=== PATIENT | male | born 1995 | race Caucasian/White ===

== ENCOUNTER 2024-11-18 16:49 | Emergency (ER) | payer SELFPAY ==
--- NOTE | 2024-11-18 16:48 | ECG_ITS ---
APPROVED REPORT Exam: Resting ECG HR:75 bpm ECG Measurements Heart Rate 75 AXES OR 168 P 82 QRSd 92 QRS 85 QT 351 T 75 QTc 380 Conclusion SINUS RHYTHM MINIMAL VOLTAGE CRITERIA FOR LVH, CONSIDER NORMAL VARIANT [MEETS CRITERIA IN ONE OF: R(aVL), S(V1), R(V5), R(V5/V6)+S(V1)] EARLY REPOLARIZATION [ST ELEVATION WITH NORMALLY INFLECTED T-WAVE] BORDERLINE ECG UNCONFIRMED REPORT Electronically signed by : AUGUSTIN DIALLO, 11/20/2024 05:17:01
[2024-11-18 16:51] VITALS: BP 137/78; PULSE 79; RESP 18; TEMP 36.6; O2SAT 99; BMI 20.4
--- NOTE | 2024-11-18 16:57 | HMH.EDGENADL ---
Discharge Plan Disposition Patient Disposition: Home, Self-Care Condition: Good Referrals Follow up/Referrals: Provider,Referral, [Primary Care Provider] - See instructions Activity Restrictions/Add. Instructions Additional Instructions/Restrictions: As we discussed, your CT scan did not show inflammation of your pancreas, although your pancreas enzyme level was elevated. It did look like you had a enteritis or a stomach bug on your CT scan but the rest of your labs were reassuring. Please make sure you are staying hydrated and eat bland foods. Please follow-up with your primary care doctor to make sure you are pancreas enzyme level goes back down. Please return with any new or worsening symptoms. Clinical Impressions Clinical Impression: Elevated lipase Print Language Print Language: Martiniquais Discharge ED Provider: Vladimir Call Adult HPI General Chief complaint: Chest Pain Stated complaint: Chest Pain Time Seen by Provider: 11/18/24 16:57 Mode of Arrival: Ambulatory Source of Information: Patient Description of Symptoms (Recalled from ER Triage Doc. by RN): Patient reports chest pain that started Sunday. States that it comes and goes and that his left arm is tingly. States that it did get worse this morning so he took some tylenol and ibuprofen and that seemed to help. History of Present Illness HPI narrative: Patient presents for evaluation of gradual in onset, substernal, nonradiating, nonpleuritic, nonexertional chest pain described as sharp, intermittent, with no exacerbating or alleviating factors no associated hemoptysis no associated palpitations. No associated other symptoms outside of nausea. No sick contacts no recent travel. No recreational drug use, reports minimal alcohol use. Please note that above description of symptoms, in this electronic medical record under categorization of recalled from ER triage doctor by RN are reflective of an initial nursing assessment, however, is not reflective of my full history and physical exam that was personally taken and clarified. Consequentially, this preceding description of symptoms, which may include the patient's categorized chief complaint in the EMR, do not reflect my personal clinical impression, and the ultimate description of history of present illness and patient stated complaints should be deferred to this section of the note. Unless stated otherwise or congruent with this section of the note, additional signs, symptoms, or incongruence should be interpreted as inaccurate with my clinical impression. Related Data Allergies Allergy/AdvReac Type Severity Reaction Status Date / Time No Known Allergies Allergy Verified 11/18/24 16:54 PFSH PFSH Disclaimer: The information contained in this section may have been updated after the patient was seen, as this information can be updated by other users. Social History Smoking Status: Unknown if ever smoked alcohol intake: never current occupational status: other Travel in the last 8 weeks: None ROS Obtained: Yes other As per HPI Physical Exam General General appearance: alert and in no apparent distress Head Head exam: atraumatic and normocephalic Eye Eye exam: Present normal appearance Neck Neck exam: Present normal inspection Chest Chest inspection: Present normal inspection and symmetric chest wall rise Respiratory Respiratory exam: Present normal lung sounds bilaterally; Absent respiratory distress Cardiovascular Cardiovascular exam: Present regular rate and normal rhythm Abdominal Exam Abdominal exam: Present soft Neurological Exam Neurological exam: Present alert and oriented X3 Psychiatric Psychiatric exam: Present normal affect and normal mood Skin Skin exam: Present warm and dry Medical Decision Making Medical Records Medical records reviewed: Yes I reviewed the patient's medical records. Screening: Per USPSTF and CDC recommendations, given the prevalence of disease in our region, it is our hospital?s policy to screen for HIV and viral Hepatitis for all patients aged 18 and over and those with ongoing risk factors. John Inquiry Pt receiving controlled substance: No Vital Signs: 11/18/24 16:51 11/18/24 20:22 Temperature 97.9 F 98.1 F Temperature Source Oral Pulse Rate 54 L Pulse Rate [Radial] 79 Respiratory Rate 18 20 Blood Pressure 118/71 Blood Pressure [Right Arm] 137/78 Blood Pressure Mean [Right Arm] 97 Blood Pressure Source [Right Arm] Automatic Cuff Blood Pressure Position [Right Arm] Sitting 02 Sat by Pulse Oximetry 99 Oxygen Delivery Method Room Air Room Air Lab Data Lab Results 11/18/24 16:57: WBC 5.7, RBC 4.98, Hgb 14.4, Hct 42.3, MCV 84.9, MCH 28.9, MCHC 34.0, RDW 12.1, Plt Count 169, MPV 12.0 H, Neut % (Auto) 61.9, Lymph % (Auto) 26.5, [place] % (Auto) 9.4 H, Eos % (Auto) 1.7, Baso % (Auto) 0.3, Neut # (Auto) 3.6, Lymph # (Auto) 1.5, [place] # (Auto) 0.5, Eos # (Auto) 0.1, Baso # (Auto) 0.0, Sodium 139, Potassium 3.8, Chloride 102, Carbon Dioxide 27, Anion Gap 13.8, BUN 19, Creatinine 0.70, Estimated Creat Clear 158, Estimated GFR 135, Est GFR ( Amer) 164, Glucose 99, Calcium 9.3, Total Bilirubin 0.4, AST 25, ALT 21, Alkaline Phosphatase 46, Total Creatine Kinase 112, Troponin I < 0.01, Total Protein 7.4, Albumin 4.4, Globulin 3.0, Albumin/Globulin Ratio 1.5, Lipase 655 H 11/18/24 20:20: Troponin I < 0.01 11/18/24 16:57 11/18/24 16:57 Orders (Tests/Meds): ED MEDICATIONS Discontinued Medications Generic Name Dose Route Start Last Admin Trade Name Freq PRN Reason Stop Dose Admin Iopamidol 75 ml 11/18/24 19:35 11/18/24 19:37 Iopamidol-370 (76%);100ml Bottle IV 11/18/24 19:36 75 ml ONCE ONE Administration Ketorolac Tromethamine 15 mg 11/18/24 17:07 11/18/24 17:13 Ketorolac 30mg/Ml Vial IV 11/18/24 17:08 Not Given ONCE ONE Sodium Chloride 10 ml 11/18/24 19:35 11/18/24 19:37 Sodium Chloride 0.9% 10ml Syr (Rad Only) IV 12/18/24 19:34 10 ml NEEDED PRN Administration Maintain IV Site ORDERS Category Date Time Status CT abdomen pelvis w con Stat Cat Scan 11/18/24 18:39 Completed POCUS Point of Care (ER Only) Stat Exams 11/18/24 18:31 Completed XR chest 2V Stat Exams 11/18/24 17:07 Completed CBC w/Auto Diff [Complete Blood Count Auto Diff] Stat Lab 11/18/24 16:57 Completed CK [Creatine Kinase] Stat Lab 11/18/24 16:57 Completed CMP [Comprehensive Metabolic Panel] Stat Lab 11/18/24 16:57 Completed Lipase Stat Lab 11/18/24 16:57 Completed Troponin I Q3H Lab 11/18/24 16:57 Completed Troponin I Q3H Lab 11/18/24 20:20 Completed HEART Score History (anamnesis): Slightly suspicious ECG: Non-specific disturbance Age: <45 years Risk factors: No known risk factors Troponin: </= normal limit HEART Score: 1 Medical Decision Narrative: Patient with history and exam per above presenting for evaluation of chest pain Diagnoses considered include ACS, insufficient clinical evidence to warrant further investigation for etiologies such as PE, dissection, will also evaluate for referred pain causes, including pancreatitis, PUD, pneumonia ED workup and treatment included: ED MEDICATIONS Discontinued Medications Generic Name Dose Route Start Last Admin Trade Name Freq PRN Reason Stop Dose Admin Iopamidol 75 ml 11/18/24 19:35 11/18/24 19:37 Iopamidol-370 (76%);100ml Bottle IV 11/18/24 19:36 75 ml ONCE ONE Administration Ketorolac Tromethamine 15 mg 11/18/24 17:07 11/18/24 17:13 Ketorolac 30mg/Ml Vial IV 11/18/24 17:08 Not Given ONCE ONE Sodium Chloride 10 ml 11/18/24 19:35 11/18/24 19:37 Sodium Chloride 0.9% 10ml Syr (Rad Only) IV 12/18/24 19:34 10 ml NEEDED PRN Administration Maintain IV Site ORDERS Category Date Time Status CT abdomen pelvis w con Stat Cat Scan 11/18/24 18:39 Completed POCUS Point of Care (ER Only) Stat Exams 11/18/24 18:31 Completed XR chest 2V Stat Exams 11/18/24 17:07 Completed CBC w/Auto Diff [Complete Blood Count Auto Diff] Stat Lab 11/18/24 16:57 Completed CK [Creatine Kinase] Stat Lab 11/18/24 16:57 Completed CMP [Comprehensive Metabolic Panel] Stat Lab 11/18/24 16:57 Completed Lipase Stat Lab 11/18/24 16:57 Completed Troponin I Q3H Lab 11/18/24 16:57 Completed Troponin I Q3H Lab 11/18/24 20:20 Completed Labs were independently interpreted by me, significant for troponin within normal limits, however elevated lipase Imaging was independently visualized and interpreted by me, significant for no acute findings Please refer to radiology report for full details. My clinical impression at this time is most consistent with likely pancreatitis, patient is able to tolerate p.o. intake, is comfortable with discharge at this time with outpatient follow-up and strict return precautions. Low clinical likelihood at this time of cardiac pathology I discussed my clinical impression with patient and answered all questions. At this time, the evidence for any other entities in the differential is insufficient to warrant any further testing or ED observation. This was explained to the patient. The patient was advised that persistent or worsening symptoms require further evaluation. Critical Care Critical Care Time Critical Care Time: No
--- NOTE | 2024-11-18 17:07 | XR_ITS ---
PROCEDURE INFORMATION: Exam: XR Chest Exam date and time: 11/18/2024 5:31 PM Age: 28 years old Clinical indication: Sternal or substernal pain; Additional info: Substernal chest pain TECHNIQUE: Imaging protocol: Radiologic exam of the chest. Views: 2 views. COMPARISON: No relevant prior studies available. FINDINGS: Lungs: Unremarkable. No consolidation. Pleural spaces: Unremarkable. No pleural effusion. No pneumothorax. Heart/Mediastinum: Unremarkable. No cardiomegaly. Bones/joints: Postsurgical changes of the thoracolumbar spine. IMPRESSION: No acute findings.
[2024-11-18 17:27] LABS: Basophils % 0.3 % (0.1-2.0); Eosinophils # 0.1 K/mm3 (0.0-0.4); Eosinophils % 1.7 % (0.1-12.0); Hematocrit 42.3 % (42.0-52.0); Hemoglobin 14.4 g/dL (14.1-18.0); Lymphocytes # 1.5 K/mm3 (0.7-4.5); Lymphocytes % 26.5 % (10-50); Mean Corpuscular Hemoglobin 28.9 pg (27.0-31.2); Mean Corpuscular Volume 84.9 fl (80-94); Monocytes # 0.5 K/mm3 (0.1-1.0); Monocytes % 9.4 % (1.7-9.3); Neutrophils # 3.6 K/mm3 (1.8-7.8); Neutrophils % 61.9 % (37.0-80.0); Platelet Count 169 K/mm3 (142-424); Red Blood Count 4.98 M/mm3 (4.60-6.20); Red Cell Distribution Width 12.1 % (11.5-17.5); White Blood Count 5.7 K/mm3 (4.8-10.8)
[2024-11-18 17:44] LABS: Alanine Aminotransferase 21 U/L (12-78); Albumin Level 4.4 g/dl (3.5-5.0); Albumin/Globulin Ratio 1.5 (1.1-1.8); Alkaline Phosphatase 46 U/L (38-126); Anion Gap 13.8 mEq/L (5-15); Aspartate Amino Transferase 25 U/L (17-59); Bilirubin,Total 0.4 mg/dl (0.2-1.3); Blood Urea Nitrogen 19 mg/dl (9-20); Calcium 9.3 mg/dl (8.4-10.2); Carbon Dioxide 27 mmol/L (22.0-30.0); Chloride 102 mmol/L (98-107); Creatine Kinase 112 U/L (55-170); Creatinine Clearance Estimated 158 mL/min (50-200); Estimated Glomerular Filt Rate 135 ml/min (>60); GFR (African American) 164 ML/MIN (>60); Glucose 99 mg/dl (74-100); Potassium 3.8 mmoL/L (3.5-5.1); Sodium 139 mmol/L (136-145); Total Protein,Serum 7.4 g/dl (6.3-8.2)
--- NOTE | 2024-11-18 17:50 | PC.NURSE ---
PT REFUSED COVID AND FLU SWAB
[2024-11-18 18:27] LABS: Lipase 655 U/L (23-300)
--- NOTE | 2024-11-18 18:35 | PC.NURSE ---
Dr. Call notified of Lipase of 655.
--- NOTE | 2024-11-18 18:39 | CT_ITS ---
PROCEDURE INFORMATION: Exam: CT Abdomen And Pelvis With Contrast Exam date and time: 11/18/2024 7:34 PM Age: 28 years old Clinical indication: Abdominal pain; Additional info: Abd/chest pain, elevated lipase, gb wnl on pocus TECHNIQUE: Imaging protocol: Computed tomography of the abdomen and pelvis with contrast. Radiation optimization: All CT scans at this facility use at least one of these dose optimization techniques: automated exposure control; mA and/or kV adjustment per patient size (includes targeted exams where dose is matched to clinical indication); or iterative reconstruction. Contrast material: ISOVUE; Contrast volume: 75 ml; Contrast route: IV; COMPARISON: CR Chest 08/23/2024 17:31 FINDINGS: Tubes, catheters and devices: Posterior fusion of T12-L2. Hardware appears intact. Liver: Normal. No mass. Gallbladder and biliary ducts: Normal. No calcified stones. No ductal dilation. Pancreas: Normal. No ductal dilation. Spleen: Normal. No splenomegaly. Adrenal glands: Normal. No mass. Kidneys and ureters: Normal. No hydronephrosis. Stomach and bowel: Mild nonspecific small bowel wall thickening. Appendix: Unremarkable appendix. Intraperitoneal space: Unremarkable. No free air. No significant fluid collection. Vasculature: Unremarkable. No abdominal aortic aneurysm. Lymph nodes: Unremarkable. No enlarged lymph nodes. Urinary bladder: Unremarkable as visualized. Reproductive: Unremarkable as visualized. Bones/joints: Limbus vertebra of L5. Soft tissues: Unremarkable. Other findings: Stigmata of old granulomatous disease. IMPRESSION: 1. Mild nonspecific small bowel wall thickening. Please exclude enteritis. Otherwise, no acute findings. 2. No findings to correlate with acute pancreatitis.
[2024-11-18 18:50] LABS: Troponin I < 0.01 ng/ml (0.00-0.034)
--- NOTE | 2024-11-18 19:19 | PC.NURSE ---
Patient refuses to wear monitoring equipment. Patient educated on risks and benefits.
[2024-11-18] MEDS: SODIUM CHLORIDE 0.9% 10ML SYR (RAD ONLY) 10 ML IV (19:37)
[2024-11-18] MEDS: IOPAMIDOL-370 (76%);100ML BOTTLE 75 ML IV (19:37)
[2024-11-18 20:22] VITALS: BP 118/71; PULSE 54; RESP 20; TEMP 36.7; O2SAT 100
[2024-11-18 21:00] LABS: Troponin I < 0.01 ng/ml (0.00-0.034)
== END 2024-11-18 20:26 | disposition home or self-care (01) ==
PROVIDERS: Emergency Provider Emergency Medicine
DX: R79.9 Abnormal finding of blood chemistry, unspecified (principal)
CPT/HCPCS: 71046; 74177; 80053; 82550; 83690; 84484; 85025; 93005; 96374; 99285; Q9967